=== PATIENT | male | born 1950 | race Caucasian/White ===

== ENCOUNTER 2024-03-21 14:41 | Emergency (ER) | payer MEDICARE ==
[~2024-03-21] VITALS: Ht 182.9 cm; Wt 68.2 kg
[2024-03-21 14:44] VITALS: BP 182/94; PULSE 65; RESP 16; TEMP 98; O2SAT 98
== END 2024-03-21 15:42 ==
LOC: ER 14:42 → EDSEX 14:42 → ER 15:42
DX: Z02.89 Encounter for other administrative examinations (principal)
CPT/HCPCS: 99281; 99282; 99283